=== PATIENT | male | born 1975 | race Caucasian/White ===

== ENCOUNTER 2016-10-05 08:16 | Emergency (ER) | payer OTHER ==
[~2016-10-05] VITALS: Ht 190.5 cm; Wt 90.7 kg
--- NOTE | 2016-10-05 11:15 | ED GI/GU/ABDOMINAL COMPLAINT ---
History of Present Illness General Chief Complaint: Male Genitourinary Problems Stated Complaint: LEFT SIDE GROIN PAIN Source: patient Exam Limitations: no limitations Vital Signs & Intake/Output Vital Signs & Intake/Output Vital Signs Date Time Temp Pulse Resp B/P Pulse O2 O2 Flow FiO2 Ox Delivery Rate 10/05 1247 55 18 122/68 99 Room Air 10/05 1046 96.2 55 18 138/91 99 10/05 1021 98 10/05 0820 96.8 56 18 99 Room Air Allergies Coded Allergies: No Known Allergies (10/05/16) Triage Note: 41 Y/O MALE C/O LLQ PAIN RADIATING INTO L GROIN; ONSET THIS AM DURING/AFTER HAVING BM. PT STATES HE WAS "FINE" WHEN HE WOKE UP. DURING ONSET OF PAIN, HAD NAUSEA BUT DENIES AT PRESENT. DENIES VOMITING. DENIES URINARY SYMPTOMS. AFEBRILE. Triage Nurses Notes Reviewed? yes HPI: Patient presents for evaluation of acute onset of left lower quadrant/groin pain that began abruptly earlier this morning. He described as constant and severe. Fluctuates in intensity. Nothing seems to make it better or worse. It is a sharp stabbing pain as described by the patient. No prior episodes. No Meds tried to this point. Patient's pain began just after having a bowel movement. He noticed some urinary urgency/hesitancy this morning as well along with nausea but no vomiting. Past History Travel History Traveled to [place] past 21 day No Medical History Any Pertinent Medical History? see below for history Neurological: NONE EENT: NONE Cardiovascular: NONE Respiratory: NONE Gastrointestinal: NONE Hepatic: NONE Renal: NONE Musculoskeletal: NONE Psychiatric: NONE Endocrine: NONE Blood Disorders: NONE Cancer(s): NONE [employer]/Reproductive: NONE Tetanus Vaccine: 03/02/16 Surgical History Surgical History: non-contributory Psychosocial History What is your primary language Bol[place]ian Tobacco Use: Never used Family History Hx Contributory? No Review of Systems Review of Systems Constitutional: Reports: no symptoms. EENTM: Reports: no symptoms. Respiratory: Reports: no symptoms. Cardiovascular: Reports: no symptoms. GI: Reports: see HPI. Genitourinary: Reports: no symptoms. Musculoskeletal: Reports: no symptoms. Skin: Reports: no symptoms. Neurological/Psychological: Reports: no symptoms. Hematologic/Endocrine: Reports: no symptoms. Immunologic/Allergic: Reports: no symptoms. All Other Systems: Reviewed and Negative Physical Exam Physical Exam Gastrointestinal: SEE BELOW Comments: Gen.: Well-nourished, well-developed, no acute respiratory distress. Head: Normocephalic, atraumatic. Eyes: Normal inspection bilaterally Ears: Normal inspection bilaterally Nose: Normal inspection Throat/mouth : Moist mucosa Neck: Supple, full range of motion, no goiter Heart: Regular rate and rhythm, no murmurs rubs or gallops Lungs: Clear to auscultation bilaterally with normal air entry Chest: Nontender Back: Normal range of motion Abdomen: Soft, flow quadrant tenderness without rebound or guarding, normal bowel sounds, no palpable masses/hernias Extremities: Normal range of motion grossly, equal radial pulses, no cyanosis clubbing or edema Neurologic: Cranial nerves grossly intact, speech is clear Skin: warm and dry Psychiatric: Calm, cooperative, no apparent delusions or hallucinations Core Measures ACS in differential dx? No Severe Sepsis Present: No Septic Shock Present: No Progress Differential Diagnosis: ureterolithiasis, UTI/pyelo Plan of Care: Orders Procedure Date/time Status URINALYSIS 10/05 1054 Complete COMPREHENSIVE METABOLIC PANEL 10/05 1054 Complete CBC WITHOUT DIFFERENTIAL 10/05 1054 Complete Laboratory Tests 10/05/16 1209: Urine Color YEL, Urine Clarity CLEAR, Urine pH 6.0, Ur Specific [place] 1.015, Urine Protein NEG, Urine Ketones NEG, Urine Nitrite NEG, Urine Bilirubin NEG, Urine Urobilinogen 0.2, Ur Leukocyte Esterase NEG, Ur Microscopic SEDIMENT EXAMINED, Urine RBC 5-10 H, Urine WBC RARE, Ur Epithelial Cells FEW, Urine Mucus MOD H, Urine Hemoglobin LARGE H, Urine Glucose NEG 10/05/16 1054: Anion Gap 10, Estimated GFR > 60, BUN/Creatinine Ratio 17.8, Glucose 137 H, Calcium 9.5, Total Bilirubin 0.6, AST 19, ALT 38, Alkaline Phosphatase 67, Total Protein 7.4, Albumin 4.5, Globulin 2.9, Albumin/Globulin Ratio 1.6, CBC w Diff NO MAN DIFF REQ, RBC 4.85, MCV 90.8, MCH 30.5, RDW 13.1, MPV 7.9, Gran % 86.6 H , Lymphocytes % 8.7 L, Monocytes % 4.2, Eosinophils % 0.3, Basophils % 0.2, Absolute Granulocytes 11.6 H, Absolute Lymphocytes 1.2, Absolute Monocytes 0.6, Absolute Eosinophils 0, Absolute Basophils 0, PUBS MCHC 33.6 Initial ED EKG: none Comments: Patient evaluated by Dr. Carver as well. Departure Departure Disposition: HOME OR SELF CARE Condition: Stable Clinical Impression Primary Impression: Renal colic on left side Referrals: BRADY COFFMAN,LAUREN Wallace (PCP/Family) Additional Instructions: Naprosyn as prescribed for pain, add Percocet if necessary. Follow-up with Dr. Mora the urologist tomorrow for reevaluation. Notify your primary care doctor of this emergency department visit and treatment plan. Return if any concerns or sudden worsening. Please note that there might be incidental findings in your evaluation that are unrelated to the current emergency department visit. Please notify your primary care doctor about this emergency department visit in order to obtain and review all of the testing performed so that these incidental findings can be monitored as needed. If you had an x-ray performed, please understand that some fractures may not be seen on the initial set of x-rays. If your symptoms persist you might need a repeat set of x-rays to check for such a fracture. If you had a laceration evaluated, please understand that foreign bodies such as glass or wood may not be visible to the naked eye or on plain x-rays. If the wound becomes red, swollen, increasingly more painful or if there is any drainage from the wound, please have it reevaluated by a physician for the possibility of a retained foreign body. Thank you for choosing the [facility] Emergency Department for your care. It was a pleasure to serve you today. Vinay Polk M.D. [facility] Departure Forms: Customer Survey General Discharge Information Prescriptions: Current Visit Scripts Naproxen (Naprosyn) 1 TAB PO BID #20 TAB Oxycodone HCl/Acetaminophen (Percocet 5-325 MG Tablet) 1-2 TAB PO Q6P PRN pain #20 TAB Critical Care Note Critical Care Note Critical Care Time: 30-74 min
[2016-10-05 11:34] LABS: ABSOLUTE BASOPHIL COUNT 0 /CUMM (0.0-0.2); ABSOLUTE EOSINOPHIL COUNT 0 /CUMM (0.0-0.7); ABSOLUTE GRANULOCYTE CT 11.6 /CUMM (1.4-6.5); ABSOLUTE LYMPH COUNT 1.2 /CUMM (1.2-3.4); ABSOLUTE MONOCYTE COUNT 0.6 /CUMM (0.10-0.60); BASOPHIL % 0.2 % (0.0-2.0); EOSINOPHIL % 0.3 % (0-5); HEMATOCRIT 44.1 % (42-52); MEAN CORPUSCULAR HGB 30.5 PG (27.0-31.0); MEAN CORPUSCULAR HGB CONC 33.6 G/DL (33.0-37.0); MEAN CORPUSCULAR VOLUME 90.8 FL (80.0-94.0); MEAN PLATELET VOLUME 7.9 FL (7.4-10.4); RBC DISTRIBUTION WIDTH 13.1 % (11.5-14.5); RED BLOOD CELL CT 4.85 /CUMM (4.70-6.10); WHITE BLOOD CELL COUNT 13.4 /CUMM (4.8-10.8)
[2016-10-05 12:03] LABS: GRANULOCYTE % 86.6 % (42.2-75.2); PLATELET COUNT 388 /CUMM (130-400)
--- NOTE | 2016-10-05 13:08 | CT SCAN REPORT ---
EXAMINATION: CT ABDOMEN AND PELVIS WITHOUT CONTRAST CLINICAL INFORMATION: 41-year-old male with left lower quadrant/groin pain and urinary hesitancy. COMPARISON: None TECHNIQUE: Multidetector volumetric imaging was performed from the superior aspect of the liver through the pubic symphysis. Sagittal and coronal reformatted images were obtained on the technologist's workstation. DLP: 397 mGy-cm FINDINGS: LUNG BASES: No acute findings. LIVER, GALLBLADDER, AND BILIARY TREE: The liver is normal in size, shape, and attenuation. No focal hepatic lesion or biliary ductal dilatation. The gallbladder is unremarkable. PANCREAS: Unremarkable. SPLEEN: Unremarkable. ADRENAL GLANDS: Unremarkable. KIDNEYS AND URETERS: Kidneys are normal in size and have normal cortical attenuation. 0.3 cm calyceal stone is present within the right lower pole. There are no calculi identified within the left kidney. Mild left hydroureteronephrosis is caused by a 0.3 cm calculus of the ureterovesical junction. BLADDER: Urinary bladder has normal wall thickness. No bladder calculi. GASTROINTESTINAL TRACT: Stomach is unremarkable. Bowel loops are normal in caliber. Appendix is normal. There are a few diverticula of the descending colon without diverticulitis. No evidence of inflammation or obstruction along the gastrointestinal tract. ABDOMINAL WALL: There has been placement of mesh for bilateral inguinal hernia repair. No acute findings in the abdominal wall. LYMPH NODES: No pathologic sized lymph nodes in the abdomen or pelvis. VASCULAR: Abdominal aorta is normal in caliber. PELVIC VISCERA: Prostate gland and seminal vesicles are unremarkable. No pelvic free fluid. OSSEOUS STRUCTURES: There is a small air-containing subarticular cyst along the sacral margin of the right sacroiliac joint. Small bone island is present within the left femoral head. No suspicious bone lesions. IMPRESSION: 1. Mild left hydronephrosis caused by 0.3 cm calculus of the ureterovesical junction. 2. 0.3 cm calyceal stone is present within the lower pole of the right kidney. 3. Mild diverticulosis of descending colon without diverticulitis.
[2016-10-05] MEDS ORDERED: NAPROSYN500 M1 PO (14:16)
[2016-10-05] MEDS ORDERED: PERCOCET 5-3251 EACH PO (14:17)
[2016-10-05 14:18] VITALS: BP 110/60
== END 2016-10-05 14:28 ==
LOC: ERH 08:16
PROVIDERS: Emergency Medicine
DX: N23 Unspecified renal colic (principal)
CPT/HCPCS: 74176; 81001; 96374; J1885